=== PATIENT | male | born 1960 | race Caucasian/White ===

== ENCOUNTER → 2022-09-19 15:00 | Outpatient (CLI) | payer OTHER, SELFPAY ==
--- NOTE | ~2022-09-19 | XR_ITS ---
EXAM: XR knee RT min 4V DATE: 09/19/2022 15:12 HISTORY: M25.561 - Pain in right knee . COMPARISON: None available. FINDINGS: Normal mineralization. No fracture or dislocation. No lytic or blastic lesion. Mild tricom partmental osteoarthritic change. Quadriceps enthesopathy. No erosion or periosteal change. Apparent thickening of the distal quadriceps muscles, with overlying subcutaneous edema. Scattered atheroscler otic vascular calcifications. IMPRESSION: No acute osseous finding in the right knee. Question of contusion or other soft tissue in jury such as muscle strain over the distal quadriceps muscle, correlate clinically. Reviewed, dictated and finalized at location K. [facility] [employer] IMPRESSION: No acute osseous finding in the right knee. Question of contusion o r other soft tissue injury such as muscle strain over the distal quadriceps mus delon, correlate clinically.
== END ==
PROVIDERS: PCP Emergency Medicine; Visit Provider Emergency Medicine
DX: M25.561 Pain in right knee (principal)
CPT/HCPCS: 73564

== ENCOUNTER 2022-09-19 15:11 | Outpatient (CLI) | payer OTHER, SELFPAY ==
[2022-09-19 18:57] LABS: Basophils Percent Auto 0.3 % (0.2-1.2); Eosinophils Absolute Auto 0.2 K/mm3 (0-0.3); Eosinophils Percent Auto 2.5 % (0-4.4); Hematocrit 41.3 % (42.0-52.0); Hemoglobin 13.8 g/dL (14.0-18.0); Immature Granulocyte Absolute 0.03 K/mm3 (0.00-0.031); Immature Granulocyte Percent A 0.5 % (0-0.5); Lymphocytes Absolute Auto 1.68 K/mm3 (0.9-3.2); Lymphocytes Percent Auto 27.9 % (18.3-44.2); Mean Corpuscular HGB Conc 33.4 g/dl (32-36); Mean Corpuscular Hemoglobin 30.1 pg (26-34); Mean Platelet Volume 8.5 fl (7.4-10.4); Monocytes Absolute Auto 0.5 K/mm3 (0.1-0.6); Monocytes Percent Auto 8.1 % (2.6-8.5); Neutrophils Absolute Auto 3.7 K/mm3 (1.3-6.7); Neutrophils Percent Auto 60.7 % (45.5-73.1); Platelet Count Result 165 k/mm3 (150-375); Red Blood Count 4.59 M/mm3 (4.6-6.20)
== END 2022-09-19 15:12 | disposition home or self-care (01) ==
LOC: ANHGOSHLAB 15:13
PROVIDERS: PCP Emergency Medicine; Visit Provider Emergency Medicine
DX: M25.561 Pain in right knee (principal)
CPT/HCPCS: 36415; 84550; 85025

== ENCOUNTER 2023-08-09 15:36 | Emergency (ER) | payer OTHER, SELFPAY ==
[2023-08-09] VITALS (22 sets, daily range): BP systolic 144–164; BP diastolic 97–114; PULSE 105–123; RESP 16–23; TEMP 36.3–37.1; O2SAT 92–97
--- NOTE | ~2023-08-09 | CT_ITS ---
EXAMINATION: CTA chest PE protocol DATE: 08/09/2023 17:44 INDICATION: Tachycardia, deep venous thrombosis TECHNIQUE: Computed tomography angiography (CTA) of the chest was performed with 100 mL Omnipaque-350 intravenous contrast timed to evaluate the pulmonary arteries. Coronal maximum intensity projection 3D-reconstructions were created by the technologist. The dose-length product (DLP) was 301.86 mGy-cm. Automated exposure control and iterative reconstruction technique were employed. COMPARISON: None. FINDINGS: The pulmonary arteries are well-opacified. There is a saddle embolus extending into proxima l pulmonary arterial branches of the left upper lobe and lingula and the right upper and lower lobes. Additional smaller emboli are noted in subsegmental branches of the left lower lobe. There is straig htening of the interventricular septum of the heart. There are trace pleural effusions. Mild dependen t atelectasis is noted. There is no pneumothorax. The heart size is normal. There is calcified rico ry artery atherosclerosis. There are no pathologically enlarged thoracic lymph nodes. There is mild l oss of vertebral body height at T6. IMPRESSION: 1. Saddle pulmonary embolus with suggestion of right heart strain. These findings were discussed with Dr. Genevieve Mancera MD in the Emergency Department at 1750 hours on 08/09/2023. Reviewed, dictated and finalized at location F. IMPRESSION: 1. Saddle pulmonary embolus with suggestion of right heart strain. These findin gs were discussed with Dr. Genevieve Mancera MD in the Emergency Department at 1750 hours on 08/09/2023.
--- NOTE | ~2023-08-09 | US_ITS ---
EXAMINATION: US venous doppler LE RT DATE: 08/09/2023 16:17 INDICATION: Right lower limb pain and swelling TECHNIQUE: Art scale images without and with compression and Doppler images of the right lower extre mity veins were obtained. COMPARISON: None FINDINGS: The right common femoral vein, profunda femoral vein, femoral vein, popliteal vein, peronea l trunk, and posterior tibial veins are occluded. IMPRESSION: 1. Deep venous thrombosis of the visualized right lower extremity veins. These findings were discussed with Dr. Genevieve Mancera MD in the Emergency Department at 1625 hours on . Reviewed, dictated and finalized at location F. IMPRESSION: 1. Deep venous thrombosis of the visualized right lower extremity veins. These findings were discussed with Dr. Genevieve Mancera MD in the Emergency Departm ent at 1625 hours on 08/09/2023.
--- NOTE | 2023-08-09 16:05 | PC.NURSE ---
US at bedside.
[2023-08-09 17:04] LABS: Hematocrit 47.8 % (42.0-52.0); Hemoglobin 16.4 g/dL (14.0-18.0); Mean Corpuscular HGB Conc 34.3 g/dl (32-36); Mean Corpuscular Hemoglobin 30.4 pg (26-34); Mean Corpuscular Volume 88.7 fl (80-100); Mean Platelet Volume 9.5 fl (7.4-10.4); Platelet Count Result 105 k/mm3 (150-375); Red Blood Count 5.39 M/mm3 (4.6-6.20); White Blood Count 8.6 K/mm3 (4.5-10.0)
[2023-08-09 17:16] LABS: INR 0.9; Prothrombin Time 12.4 Seconds (11.1-14.7)
[2023-08-09 17:17] LABS: Partial Thromboplastin Time 22.1 SECONDS (22.3-36.8)
[2023-08-09 17:24] LABS: Anion Gap 10 mmol/L (8-16); Blood Urea Nitrogen 22 mg/dL (9-20); Calcium 9.6 mg/dL (8.4-10.2); Carbon Dioxide 20 mmol/L (22-30); Chloride 101 mmol/L (98-107); Estimated CRCL calculation 82 ml/min; Estimated Glomerular Filt Rate > 60; Potassium 4.6 mmol/L (3.4-5.0); Sodium 131 mmol/L (137-145)
[2023-08-09 17:27] LABS: Band Neutrophils Percent 8 % (0-6); Lymphocytes Absolute Manual 1.03 K/mm3 (1.1-4.5); Lymphocytes Percent Manual 12 % (18-44); Metamyelocytes Percent 3 %; Monocytes Percent Manual 7 % (3-9); Myelocytes Percent 1 %; Neutrophils Absolute Manual 6.62 K/mm3 (1.3-6.7); Neutrophils Percent Manual 69 % (46-73); Platelet Estimate Decreased (Adequate); Total Cells Counted 100
[2023-08-09 17:28] LABS: Ovalocytes 1+ (NORMAL); Schistocytes None Seen (NORMAL)
[2023-08-09] MEDS: MORPHINE SULFATE (*CRX) 4 MG/ML INJ IV PUSH (17:28)
[2023-08-09 17:43] LABS: Glucose 664 mg/dL (65-110)
[2023-08-09] MEDS: LACTATED RINGERS 1,000 ML 999 ML IV CONT (17:56)
--- NOTE | 2023-08-09 18:02 | ED.LOWEXIN ---
HPI - Extremity Injury (Lower) General Chief Complaint: Extremity Injury, Lower Stated Complaint: RLE pain, sent for DVT eval from PCP Time Seen by Provider: 08/09/23 15:57 History of Present Illness HPI Narrative: Pt reports RLE pain/swelling increasing for 1mo; noticed today and had him come in. No other complaints. Being treated for brain cancer at [facility]. Related Data Home Medications Medication Instructions Recorded Confirmed dexamethasone 2 mg tablet mg 08/09/23 08/09/23 lamotrigine 150 mg tablet mg PO 08/09/23 08/09/23 levetiracetam 500 mg tablet mg PO 08/09/23 mirtazapine 15 mg tablet mg PO 08/09/23 08/09/23 ondansetron 8 mg disintegrating mg 08/09/23 tablet quetiapine 100 mg tablet mg PO 08/09/23 08/09/23 Allergies Allergy/AdvReac Type Severity Reaction Status Date / Time levofloxacin [From Levaquin] Allergy Severe hives Verified 08/09/23 16:00 tadalafil Allergy Unknown groin pain Verified 08/09/23 16:00 tamsulosin Allergy Unknown gave him Verified 08/09/23 10:23 groin pain prednisone AdvReac Unknown Unknown Verified 08/09/23 10:23 Review of Systems Review of Systems: CONST: No fever. HEENT: No sore throat C/V: No chest pain RESP: No cough GI: No abdominal pain : No dysuria. M/S: No joint pain. SKIN: No rash. NEURO: [No headache or focal numbness or weakness] PSYCH: [No depression] [facility] Past Medical History Medical History Acute bronchitis Inferior myocardial infarction Rotator cuff tendonitis STEMI (ST elevation myocardial infarction) Tendonitis of shoulder, right Surgical History Surgical History H/O heart artery stent H/O heart artery stent Family History Family History Mother Acute myocardial infarction, Onset Age: 71 Father Family history of chronic obstructive pulmonary disease, Onset Age: 81 Social History Social History Smoking status: Former smoker Second hand tobacco smoke exposure: No Alcohol intake: never Substance use: never Substance use type: does not use Lack of Transportation: No Lack of Food: Never True Current Housing: I Have Housing Concerned About Future Housing: No Difficulty Paying Gas/Electric Bills: No Difficulty Paying for Meds: No Currently Unemployed: No Education: High School Diploma/GED Living arrangements: with family Occupation/Education: occupation Gender identity (if verbalized by the patient): Male Spiritual care concerns: No Agree to blood products: Yes Course Vital Signs Vital signs: Vital Signs Temperature 97.4 F L 08/09/23 15:37 Pulse Rate 117 H 08/09/23 15:37 Respiratory Rate 16 08/09/23 15:37 Blood Pressure 156/100 H 08/09/23 15:37 Pulse Oximetry 95 08/09/23 15:37 Oxygen Delivery Room Air 08/09/23 15:37 Temperature 98.7 F 08/09/23 17:19 Pulse Rate 113 H 08/09/23 18:38 Respiratory Rate 20 08/09/23 18:38 Blood Pressure 163/109 H 08/09/23 18:38 Pulse Oximetry 95 08/09/23 18:38 Oxygen Delivery Room Air 08/09/23 15:37 MDM - Extremity Injury (Lower) MDM Narrative Medical decision making narrative: Patient presenting here with swelling to right lower extremity, he is also tachycardic, on exam he does have extensive swelling to the right lower extremity, intact DP pulses, ultrasound concerning for extensive DVT, given his symptoms I did opt to also obtain a CT PE, this unfortunately shows a saddle embolus with right heart strain, I did immediately call [facility] where he is receiving care for cancer to transfer for definitive management, as well start the patient on heparin. Given his tachycardia I did opt to try a small dose of fluids, unfortunately it appears that his oxygen saturation worsene
[2023-08-09 18:17] LABS: Alveolar/Arterial O2 Gradient 51.8 mmHg; Base Excess ABG -4.3 mEq/l (+/-2.0); Fractional Inspired Oxygen 21 %; HCO3 ABG 18.7 mEq/l (22.0-26.0); Oxygen Content ABG 20.1 %vol (16.0-22.0); Oxygen Saturation ABG 92.6 % (95.0-100.0); Oxyhemoglobin 90.6 % THb (90.0-100.0); PCO2 ABG 29.7 mmHg (35.0-45.0); PO2 ABG 62.4 mmHg (80.0-100.0); PO2 FiO2 Ratio Arterial Blood 2.97 %; Total Hemoglobin 15.8 g/dL (12.0-18.0); pH ABG 7.418 (7.350-7.450)
[2023-08-09 18:18] LABS: Device ROOM AIR; Modified Allen's Test Pass; Site Drawn RIGHT RADIAL
[2023-08-09] MEDS: HEPARIN SOD/D5W 100 UNITS/ML 25,000 UNITS/250 ML BAG 13 UNITS IV CONT (18:31)
[2023-08-09] MEDS: HEPARIN SODIUM 5,000 UNITS/ML VIAL 5500 UNITS IV PUSH (18:31)
[2023-08-09 18:43] LABS: Beta-Hydroxybutyrate/Acetoacetate 0.34 mmol/L (0.02-0.27)
[2023-08-09 19:10] LABS: Glucose Point of Care > 500 mg/dl (65-105)
[2023-08-09] MEDS: INSULIN HUMAN REGULAR (*BKC) 100 UNITS/ML 7 UNITS IV PUSH (20:07)
[2023-08-09 21:19] LABS: Glucose Point of Care 306 mg/dl (65-105)
== END 2023-08-09 21:26 | disposition short-term general hospital (02) ==
PROVIDERS: Emergency Provider Emergency Medicine; PCP Emergency Medicine
DX: I26.92 Saddle embolus of pulmonary artery without acute cor pulmonale (principal); I82.411 Acute embolism and thrombosis of right femoral vein; I82.431 Acute embolism and thrombosis of right popliteal vein; I82.451 Acute embolism and thrombosis of right peroneal vein; I82.441 Acute embolism and thrombosis of right tibial vein; C71.9 Malignant neoplasm of brain, unspecified; I25.2 Old myocardial infarction; Z95.5 Presence of coronary angioplasty implant and graft; Z87.891 Personal history of nicotine dependence
CPT/HCPCS: 36415; 36600; 71275; 80048; 82010; 82805; 82948; 85025; 85055; 85610; 85730; 93971; 96361; 96365; 96366; 96375; 99291; J1644; J1815; J2270; J7120; Q9967

== ENCOUNTER 2023-08-23 15:36 | Outpatient (CLI) | payer OTHER, SELFPAY ==
[2023-08-23 18:46] LABS: Anion Gap 6 mmol/L (8-16); Blood Urea Nitrogen 22 mg/dL (9-20); Calcium 9.6 mg/dL (8.4-10.2); Carbon Dioxide 31 mmol/L (22-30); Chloride 100 mmol/L (98-107); Estimated Glomerular Filt Rate > 60; Glucose 177 mg/dL (65-110); Sodium 137 mmol/L (137-145)
[2023-08-23 19:33] LABS: Hemoglobin A1C 8.4 % (<5.7)
== END 2023-08-23 15:37 | disposition home or self-care (01) ==
LOC: ANHGOSHLAB 15:37
PROVIDERS: PCP Emergency Medicine; Visit Provider Emergency Medicine
DX: E11.69 Type 2 diabetes mellitus with other specified complication (principal); E78.1 Pure hyperglyceridemia
CPT/HCPCS: 36415; 80048; 83036

== ENCOUNTER 2023-09-07 08:11 | Outpatient (CLI) | payer OTHER, SELFPAY ==
--- NOTE | ~2023-09-07 | XR_ITS ---
EXAMINATION: XR abdomen obstructive series DATE: 09/07/2023 08:34 INDICATION: Constipation, unspecified TECHNIQUE: Upright and supine views of the abdomen were obtained. COMPARISON: None. FINDINGS: A large volume of colonic stool is present. There are no dilated loops of bowel. No free in traperitoneal gas is identified. The bowel gas pattern is normal. IMPRESSION: 1. Constipation. Reviewed, dictated and finalized at location F. E [facility] IMPRESSION: 1. Constipation.
== END 2023-09-07 08:12 | disposition home or self-care (01) ==
PROVIDERS: PCP Emergency Medicine; Visit Provider Emergency Medicine
DX: K59.00 Constipation, unspecified (principal)
CPT/HCPCS: 74019